=== PATIENT | female | born 1990 | race Caucasian/White ===

== ENCOUNTER 2016-06-25 | Emergency (ER) | payer OTHER ==
[2016-11-29] MEDS ORDERED: BACTRIM DS TAB1 EACH PO (23:43)
[2016-11-29] MEDS ORDERED: KEFLEX CAP 250250 MG PO (23:44)
[2016-11-29] MEDS ORDERED: FLONASE 0.05% N16 GM (23:44)
[2016-11-29] MEDS ORDERED: ESTRACE2 MG PO (23:45)
[2016-11-29] MEDS ORDERED: REMERON45 MG PO (23:45)
[2016-11-29] MEDS ORDERED: TRAZODONE HCL50 MG PO (23:46)
[2016-11-29] MEDS ORDERED: PROGESTERONE200 MG PO (23:46)
== END 2016-06-25 17:30 | disposition left against medical advice (07) ==
DX: Z53.21 Procedure and treatment not carried out due to patient leaving prior to being seen by health care provider (principal)